=== PATIENT | female | born 1990 | race Caucasian/White ===

== ENCOUNTER 2018-04-06 06:06 | Inpatient (IN) ==
[2018-04-06] MEDS ORDERED: MEPERIDINE 50 MG/1 ML VIAL IV PRN (06:46)
[2018-04-06] MEDS ORDERED: ONDANSETRON 4 MG/2 ML VIAL IV PRN ×2 (06:46→09:50)
[2018-04-06] MEDS ORDERED: ePHEDrine 50 MG/ML AMP IV PRN (06:48)
[2018-04-06] MEDS ORDERED: diphenhydrAMINE 50 MG/1 ML VIAL IV PRN ×2 (06:48)
[2018-04-06] MEDS ORDERED: FAMOTIDINE 20 MG/2 ML VIAL IV ONE (06:48)
[2018-04-06] MEDS ORDERED: CITRIC ACID/SODIUM CITRATE 30 ML UDCUP PO ONE (06:48)
[2018-04-06] MEDS ORDERED: LACTATED RINGERS 1,000 ML IV ONE (06:48)
[2018-04-06] MEDS ORDERED: hydrOXYzine HCL 25 MG/1 ML VIAL IM PRN (06:48)
[2018-04-06] MEDS ORDERED: PROMETHAZINE 25 MG/1 ML VIAL IM ONE (06:48)
[2018-04-06] MEDS ORDERED: fentaNYL 2 MCG/ROPIV 0.2% EPID 150 ML EPIDURAL SCH (07:00)
[2018-04-06] MEDS ORDERED: OXYTOCIN/LR 20 UNIT/1,000 ML BAG IV SCH (07:00)
[2018-04-06] MEDS ORDERED: LACTATED RINGERS 1,000 ML IV SCH (07:00)
[2018-04-06 07:25] LABS: Basophils # 0.1 10*3/uL (0.0-0.2); Basophils % 0.5 % (0.0-0.8); Eosinophils # 0.1 10*3/uL (0.0-0.87); Eosinophils % 0.5 % (0.00-10.9); Hematocrit 30.3 VOL% (35.7-47.0); Hemoglobin 10.2 GM/DL (12.0-16.0); Immature Granulocytes % 0.7 %; Immature Granulocytes Absolute 0.13 #; Lymphocytes # 2.1 10*3/uL (1.4-4.0); Lymphocytes % 11.6 % (21.3-54.2); Mean Corpuscular HGB Conc 33.7 GM/DL (32-36); Mean Corpuscular Hemoglobin 33 PG (27-34); Mean Corpuscular Volume 97.1 FL (87-102); Mean Platelet Volume 9.6 FL (9.6-12.0); Monocytes # 1.1 10*3/uL (0.11-0.8); Monocytes % 6.2 % (1.7-12.7); Neutrophils # 14.3 10*3/uL (1.4-7.4); Neutrophils % 80.5 % (38.7-73.9); Platelet Count 427 T/CUMM (130-400); Red Blood Count 3.12 MC/CUMM (3.8-5.5); White Blood Count 17.7 T/CUMM (4-12)
[2018-04-06 09:12] LABS: Cord Arterial Blood HCO3 18.4 MMOL/L
[2018-04-06 09:15] LABS: Cord Venous Blood HCO3 21.4 MMOL/L; Cord Venous Blood PCO2 47.1 MMHG; Cord Venous Blood PO2 19.6 MMHG
[2018-04-06] MEDS ORDERED: BENZOCAINE 20%/MENTHOL 0.5% SPRAY 56 GM CAN TOP PRN (09:50)
[2018-04-06] MEDS ORDERED: BISACODYL 10 MG SUPP RECTAL PRN (09:50)
[2018-04-06] MEDS ORDERED: RHO(D) IMMUNE GLOBULIN 300 MCG SYRINGE IM ONE (09:50)
[2018-04-06] MEDS ORDERED: MEASLES/MUMPS/RUBELLA VACCINE 0.5 ML VIAL SUBCUT ONE (09:50)
[2018-04-06] MEDS ORDERED: WITCH HAZEL PADS 100/JAR TOP PRN (09:50)
[2018-04-06] MEDS ORDERED: OXYTOCIN/LR 20 UNIT/1,000 ML BAG IV ONE (09:50)
[2018-04-06] MEDS ORDERED: DIPH/TET/ACEL PERT BOOSTER VACCINE 0.5 ML VIAL IM ONE (09:50)
[2018-04-06] MEDS ORDERED: LANOLIN 50% CREAM 0.3 OZ TUBE TOP PRN (09:50)
[2018-04-06] MEDS ORDERED: oxyCODONE/ACETAMINOPHEN 5-325 MG TABLET PO PRN (09:50)
[2018-04-06] MEDS ORDERED: HYDROCORTISONE 2.5% RECTAL CREAM 30 GM TUBE TOP PRN (09:50)
[2018-04-06] MEDS: IBUPROFEN 800 MG TABLET PO PRN (15:20)
[2018-04-06] MEDS: oxyCODONE/ACETAMINOPHEN 5-325 MG TABLET PO PRN (16:08)
[2018-04-06] MEDS: DOCUSATE SODIUM 100 MG CAPSULE PO SCH (20:54)
[2018-04-07] MEDS: oxyCODONE/ACETAMINOPHEN 5-325 MG TABLET PO PRN ×2 (03:19→14:13)
[2018-04-07] MEDS: IBUPROFEN 800 MG TABLET PO PRN ×2 (03:20→14:12)
[2018-04-07 05:14] LABS: Basophils # 0.1 10*3/uL (0.0-0.2); Basophils % 0.4 % (0.0-0.8); Eosinophils # 0.1 10*3/uL (0.0-0.87); Eosinophils % 0.4 % (0.00-10.9); Hematocrit 23.6 VOL% (35.7-47.0); Hemoglobin 8.1 GM/DL (12.0-16.0); Immature Granulocytes % 1.2 %; Immature Granulocytes Absolute 0.18 #; Lymphocytes # 1.9 10*3/uL (1.4-4.0); Lymphocytes % 12.4 % (21.3-54.2); Mean Corpuscular HGB Conc 34.3 GM/DL (32-36); Mean Corpuscular Hemoglobin 33 PG (27-34); Mean Corpuscular Volume 96.7 FL (87-102); Mean Platelet Volume 9.7 FL (9.6-12.0); Monocytes # 0.9 10*3/uL (0.11-0.8); Monocytes % 5.6 % (1.7-12.7); Neutrophils # 12.1 10*3/uL (1.4-7.4); Platelet Count 335 T/CUMM (130-400); Red Blood Count 2.44 MC/CUMM (3.8-5.5); White Blood Count 15.1 T/CUMM (4-12)
[2018-04-07] MEDS: DOCUSATE SODIUM 100 MG CAPSULE PO SCH ×2 (08:29→20:58)
[2018-04-07] MEDS: FERROUS SULFATE 325 MG TABLET PO SCH ×2 (08:29→20:58)
[2018-04-08] MEDS: IBUPROFEN 800 MG TABLET PO PRN (01:45)
[2018-04-08] MEDS ORDERED: LABETALOL 200 MG TABLET PO ONE (06:33)
[2018-04-08] MEDS: FERROUS SULFATE 325 MG TABLET PO SCH ×2 (09:50→20:24)
[2018-04-08] MEDS: DOCUSATE SODIUM 100 MG CAPSULE PO SCH ×2 (09:52→23:36)
[2018-04-08] MEDS: ACETAMINOPHEN 325 MG TABLET PO PRN (20:24)
[2018-04-09 07:40] VITALS: BP 131/86
[2018-04-09] MEDS: ACETAMINOPHEN 325 MG TABLET PO PRN (07:56)
[2018-04-09] MEDS: DOCUSATE SODIUM 100 MG CAPSULE PO SCH (08:10)
[2018-04-09] MEDS: FERROUS SULFATE 325 MG TABLET PO SCH (08:10)
== END 2018-04-09 12:00 | disposition home or self-care (01) | DRG 560 ==
LOC: N.LDOUT 06:06 → N.LD 06:09 → N.OB 11:47
PROVIDERS: ADMIT Obstetrics & Gynecology; ATTEND Obstetrics & Gynecology